=== PATIENT | male | born 1985 | race Two or more races ===

== ENCOUNTER 2018-12-14 19:45 | Emergency (ER) | payer OTHER ==
[~2018-12-14] VITALS: Ht 180.3 cm; Wt 108.9 kg
[2018-12-14] MEDS ORDERED: DIURETICO (20:15)
[2018-12-14] MEDS ORDERED: COZAAR100 MG (20:15)
[2018-12-15] MEDS ORDERED: TAMS0.4C PO (05:35)
[2018-12-15] MEDS ORDERED: KETO10TA2 PO (05:35)
== END 2018-12-15 05:55 | disposition home or self-care (01) ==
LOC: ER 19:45
DX: N20.1 Calculus of ureter (principal); N20.0 Calculus of kidney